=== PATIENT | female | born 1965 | race African-American/Black ===

== ENCOUNTER 2023-01-23 08:59 | Emergency (ER) | payer OTHER, SELFPAY ==
--- NOTE | 2023-01-23 09:03 | ED.URI ---
HPI - URI/Sore Throat General Chief Complaint: Ear Stated Complaint: migraine, cough, rt ear pressure Time Seen by Provider: 01/23/23 09:03 Source: patient and RN notes reviewed History of Present Illness HPI Narrative: Patient is a 57-year-old female who presents to the Urgent Care with complaints of migraine headache, coughing, drainage and throat, and right ear pain. Patient states that she just moved here from [place] and has never been diagnosed with migraines in the past. Patient states she has had some relief with Tylenol which she has taken twice since 1:00 a.m. this morning. Patient states the headaches have been ongoing for 2-3 weeks and she has been in the area. Patient states that she coughs only when she laughs hard. States that the right ear pain just started she believes that she may have some wax clogged in the ear. Patient is not taking anything for her upper respiratory symptoms. No other acute complaints. No acute distress noted. Patient aware of the plan of care. Some parts of this dictation were generated by voice recognition software and may contain typographical and/or grammatical inaccuracies. Related Data Home Medications Medication Instructions Recorded Confirmed fluocinonide 0.05 % topical topical 01/23/23 solution minoxidil 2.5 mg tablet mg 01/23/23 venlafaxine 150 mg mg PO 01/23/23 capsule,extended release 24 hr Allergies Allergy/AdvReac Type Severity Reaction Status Date / Time Penicillins Allergy Hives Verified 01/23/23 09:40 Sulfa (Sulfonamide Allergy Hives Verified 01/23/23 09:40 Antibiotics) Review of Systems Review of Systems: CONSTITUTIONAL: Denies fever, chills, or sweats. EYES: Denies visual changes, redness, or discharge. ENT: Denies rhinorrhea, congestion, sore throat. Reports postnasal drainage and right otalgia CARDIOVASCULAR: Denies chest pain, palpitations, or edema. RESPIRATORY: Reports of cough when last seen without dyspnea or wheezing GASTROINTESTINAL: Denies abdominal pain, nausea, vomiting, or diarrhea. GENITOURINARY: Denies dysuria or hematuria. SKIN: Denies rash or itching. MUSCULOSKELETAL: Denies back pain, joint pain, or myalgia. NEUROLOGIC: Reports of headaches All other systems reviewed are negative, except as documented in HPI. PMFSH Comments At the time of my signature, I reviewed and agree with the nursing past medical, surgical, social, and family history. There is no relevant family history pertinent to the patient complaint. Exam Narrative: GENERAL: This is a well-nourished, well-developed patient, in no apparent distress. HEAD: normocephalic, atraumatic. EYES: PERRL. Sclera clear/white. Vision is grossly intact. EARS: External ears normal, auditory canals clear and without drainage, unable to visualize right TM due to cerumen impaction, left TM normal without perforation. Hearing grossly intact. NOSE: External nose normal with no obvious nasal discharge, nares without redness, no rhinorrhea. THROAT: Mucous membranes moist, posterior pharynx clear. Moderate postnasal drainage NECK: Neck supple, non-tender without lymphadenopathy CARDIOVASCULAR: Regular rate and rhythm RESPIRATORY: Clear to auscultation. Breath sounds equal bilaterally. No wheezes, rales, or rhonchi. SKIN: warm, intact with no suspicious lesions or rash, good texture and turgor. NEURO: awake, alert, and oriented to person, place and time. There were no obvious focal neurologic abnormalities. EXTREMITIES: No clubbing, cyanosis, or edema. Course Course Level of Care: Express Care Visit Vital Signs Vital signs: Vital Signs Temperature 97.2 F L 01/23/23 09:46 Pulse Rate 89 01/23/23 09:46 Respiratory Rate 16 01/23/23 09:46 Blood Pressure 148/84 H 01/23/23 09:46 Pulse Oximetry 98 01/23/23 09:46 Temperature 97.2 F L 01/23/23 09:46 Pulse Rate 89 01/23/23 09:46 Respiratory Rate 16 01/23/23 09:46 Blood Pressure 148/84 H 01/23/23 09:46 P
[2023-01-23 09:46] VITALS: BP 148/84; PULSE 89; RESP 16; TEMP 36.2; O2SAT 98
== END 2023-01-23 10:57 | disposition home or self-care (01) ==
PROVIDERS: Emergency Provider Nurse Practitioner Family
DX: H61.23 Impacted cerumen, bilateral (principal); R51.9 Headache, unspecified; I34.1 Nonrheumatic mitral (valve) prolapse
CPT/HCPCS: 69209; 99213; G0463

== ENCOUNTER → 2024-01-16 16:18 | Outpatient (CLI) | payer OTHER, SELFPAY ==
--- NOTE | ~2024-01-16 | MM_ITS ---
EXAMINATION: MM screening rekha BI w [facility] HISTORY: Screening mammogram TECHNIQUE: Craniocaudal and mediolateral oblique 3-D tomosynthesis images were obtained and synthetic 2-D images were generated. CAD analysis was submitted and interpreted. COMPARISON: No prior mammogram is available for comparison at this institution. BREAST PARENCHYMAL COMPOSITION: There are scattered areas of fibroglandular density. FINDINGS: There is no evidence of suspicious mass, calcification, or architectural distortion to sugg est malignancy in either breast. IMPRESSION: 1. No mammographic evidence of malignancy. 2. Recommend routine screening mammography in one year. BI-RADS Category 1: Negative Reviewed, dictated and finalized at location A. [facility]
== END ==
PROVIDERS: PCP Internal Medicine; Visit Provider Nurse Practitioner Family
DX: Z12.31 Encounter for screening mammogram for malignant neoplasm of breast (principal)
CPT/HCPCS: 77063; 77067